=== PATIENT | female | born 2000 | race Caucasian/White ===

== ENCOUNTER 2021-01-07 00:24 | Emergency (ER) | payer BC ==
[2021-01-07] MEDS ORDERED: MORPHINE SULFATE 4 MG INJ IV ONE (00:27)
[2021-01-07] MEDS ORDERED: ZOFRAN ODT 4 MG PO ONE (00:27)
[2021-01-07] MEDS ORDERED: Sodium Chloride 0.9% 1000 ML 1,000 ML IV STA (00:27)
[2021-01-07] MEDS ORDERED: ROCEPHIN 1 Gm-D5w 50 ml Bag** 1 G/50 ML IVPB IV ONE (02:17)
--- NOTE | 2021-01-07 02:58 | ERPHSYRPT ---
- Review of Systems Constitutional: No Symptoms, No Fever, No Chills Eyes: No Symptoms Ears, Nose, & Throat: No Symptoms Respiratory: No Symptoms, No Cough, No Dyspnea Cardiac: No Symptoms, No Chest Pain, No Edema, No Syncope Abdominal/Gastrointestinal: No Symptoms, No Abdominal Pain, No Nausea, No Vomiting, No Diarrhea Genitourinary Symptoms: No Symptoms, No Dysuria Musculoskeletal: No Symptoms, No Back Pain, No Neck Pain Skin: No Symptoms, No Rash Neurological: No Symptoms, No Dizziness, No Focal Weakness, No Sensory Changes Psychological: No Symptoms Endocrine: No Symptoms Hematologic/Lymphatic: No Symptoms Immunological/Allergic: No Symptoms All Other Systems: Reviewed and Negative - Female History Hx Now: No - Physical Exam General Appearance: no apparent distress, alert Eye Exam: PERRL/EOMI, eyes nml inspection Ears, Nose, Throat Exam: normal ENT inspection, pharynx normal, moist mucous membranes Neck Exam: normal inspection, non-tender, supple, full range of motion Respiratory Exam: normal breath sounds, lungs clear, airway intact, No respiratory distress Cardiovascular Exam: regular rate/rhythm, normal heart sounds, normal peripheral pulses Gastrointestinal/Abdomen Exam: soft, other (Tenderness palpation epigastrium. Overlying soft tissue intact. No signs of trauma.), No tenderness, No distention, No mass Back Exam: normal inspection, normal range of motion, No CVA tenderness, No vertebral tenderness Extremity Exam: normal inspection, normal range of motion, pelvis stable Neurologic Exam: alert, oriented x 3, cooperative, normal mood/affect, nml cere bellar function, sensation nml, No motor deficits Skin Exam: normal color, warm, dry SpO2 Interpretation: normal O2 Delivery: Room Air Ordered Tests: Medication Summary Discontinued Medications Generic Name Dose Route Start Last Admin Trade Name Freq PRN Reason Stop Dose Admin Sodium Chloride 1,000 mls @ 999 mls/hr 01/07/21 00:27 Sodium Chloride 0.9% 1000 Ml IV 01/07/21 01:27 .Q1H1M STA Ceftriaxone Sodium/Dextrose Confirm 01/07/21 02:17 Rocephin 1 Gm-D5w 50 Ml Bag Administered 01/07/21 02:18 Dose 1 g in 50 mls @ ud IV .STK-MED ONE Morphine Sulfate 4 mg 01/07/21 00:27 Morphine Sulfate 4 Mg Inj IV 01/07/21 00:28 STAT ONE Ondansetron HCl 4 mg 01/07/21 00:27 Zofran Odt 4 Mg PO 01/07/21 00:28 STAT ONE Lab/Rad Data: Laboratory Result Diagrams 01/07/21 00:27 01/07/21 00:27 Laboratory Results 01/07/21 01/07/21 01/07/21 Range/Units 01:00 00:30 00:27 WBC (4.0-10.5) K/mm3 RBC (4.1-5.4) M/mm3 Hgb (12.0-16.0) gm/dl Hct (35-47) % MCV (78-100) fl MCH (26-32) pg MCHC (32-36) g/dl RDW (11.5-14.0) % Plt Count (150-450) K/mm3 MPV (7.5-11.0) fl Gran % (36.0-66.0) % Eos # (Auto) (0-0.5) Absolute Lymphs (auto) (1.0-4.6) Absolute Monos (auto) (0.0-1.3) Lymphocytes % (24.0-44.0) % Monocytes % (0.0-12.0) % Eosinophils % (0.00-5.0) % Basophils % (0.0-0.4) % Absolute Granulocytes (1.4-6.9) Basophils # (0-0.4) Sodium 142 (137-145) mmol/L Potassium 3.9 (3.5-5.1) mmol/L Chloride 106 (98-107) mmol/L Carbon Dioxide 27 (22-30) mmol/L Anion Gap 12.9 (5-15) MEQ/L BUN 17 (7-17) mg/dL Creatinine 0.98 (0.52-1.04) mg/dL Estimated GFR > 60.0 ML/MIN Glucose 94 (74-106) mg/dL Calcium 8.9 (8.4-10.2) mg/dL Total Bilirubin 0.40 (0.2-1.3) mg/dL AST 31 (14-36) U/L ALT 21 (0-35) U/L Alkaline Phosphatase 69 (38-126) U/L Troponin I < 0.012 (0.000-0.034) ng/mL Serum Total Protein 7.0 (6.3-8.2) g/dL Albumin 4.0 (3.5-5.0) g/dL Lipase 127 (23-300) U/L Urine Color (YELLOW) Urine Appearance (CLEAR) Urine pH (5-6) Ur Specific [place] (1.005-1.025) Urine Protein (Negative) Urine Ketones (NEGATIVE) Urine Blood (0-5) Shahzad/ul Urine Nitrite (NEGATIVE) Urine Bilirubin (NEGATIVE) Urine Urobilinogen (0-1) mg/dL Ur Leukocyte Esterase (NEGATIVE) Urine WBC (Auto) (0-5) /HPF Urine RBC (Auto) (0-2) /HPF U Epithel Cells (Auto) (FEW) /HPF Urine Bacteria (Auto) (NEGATIVE) /HPF Urine Mucus (Auto) (NEGATIVE) /HPF Urine Culture Reflexed (NO) Urine Glucose (NEGATIVE) mg/dL Urine HCG, Qual NEGATIVE (Negative) 01/07/21 01/07/21 Range/Units 00:27 00:27 WBC 15.3 H (4.0-10.5) K/mm3 RBC 4.65 (4.1-5.4) M/mm3 Hgb 13.3 (12.0-16.0) gm/dl Hct 40.9 (35-47) % MCV 88.0 (78-100) fl MCH 28.6 (26-32) pg MCHC 32.5 (32-36) g/dl RDW 12.6 (11.5-14.0) % Plt Count 277 (150-450) K/mm3 MPV 10.4 (7.5-11.0) fl Gran % 72.1 H (36.0-66.0) % Eos # (Auto) 0.18 (0-0.5) Absolute Lymphs (auto) 3.51 (1.0-4.6) Absolute Monos (auto) 0.55 (0.0-1.3) Lymphocytes % 23.0 L (24.0-44.0) % Monocytes % 3.6 (0.0-12.0) % Eosinophils % 1.2 (0.00-5.0) % Basophils % 0.1 (0.0-0.4) % Absolute Granulocytes 11.00 H (1.4-6.9) Basophils # 0.02 (0-0.4) Sodium (137-145) mmol/L Potassium (3.5-5.1) mmol/L Chloride (98-107) mmol/L Carbon Dioxide (22-30) mmol/L Anion Gap (5-15) MEQ/L BUN (7-17) mg/dL Creatinine (0.52-1.04) mg/dL Estimated GFR ML/MIN Glucose (74-106) mg/dL Calcium (8.4-10.2) mg/dL Total Bilirubin (0.2-1.3) mg/dL AST (14-36) U/L ALT (0-35) U/L Alkaline Phosphatase (38-126) U/L Troponin I (0.000-0.034) ng/mL Serum Total Protein (6.3-8.2) g/dL Albumin (3.5-5.0) g/dL Lipase (23-300) U/L Urine Color YELLOW (YELLOW) Urine Appearance SLIGHTLY CLOUDY (CLEAR) Urine pH 5.0 (5-6) Ur Specific [place] 1.024 (1.005-1.025) Urine Protein NEGATIVE (Negative) Urine Ketones NEGATIVE (NEGATIVE) Urine Blood NEGATIVE (0-5) Shahzad/ul Urine Nitrite POSITIVE (NEGATIVE) Urine Bilirubin NEGATIVE (NEGATIVE) Urine Urobilinogen NEGATIVE (0-1) mg/dL Ur Leukocyte Esterase LARGE (NEGATIVE) Urine WBC (Auto) 51-100 (0-5) /HPF Urine RBC (Auto) 3-5 (0-2) /HPF U Epithel Cells (Auto) RARE (FEW) /HPF Urine Bacteria (Auto) MANY (NEGATIVE) /HPF Urine Mucus (Auto) SLIGHT (NEGATIVE) /HPF Urine Culture Reflexed YES (NO) Urine Glucose NEGATIVE (NEGATIVE) mg/dL Urine HCG, Qual (Negative) - Departure Referrals: ENRIKE SALAS MD [Primary Care Provider] -
[2021-01-07 03:29] LABS: BASOPHIL % 0.1 % (0.0-0.4); Basophil (Absolute #) 0.02 (0-0.4); Eosinophil % 1.2 % (0.00-5.0); Eosinophil (Absolute #) 0.18 (0-0.5); Hematocrit 40.9 % (35-47); Hemoglobin 13.3 gm/dl (12.0-16.0); Lymphocyte (Absolute #) 3.51 (1.0-4.6); Mean Corpuscular Hemoglobin 28.6 pg (26-32); Mean Corpuscular Hgb Concent. 32.5 g/dl (32-36); Mean Platelet Volume 10.4 fl (7.5-11.0); Monocyte (Absolute #) 0.55 (0.0-1.3); Monocytes % 3.6 % (0.0-12.0); Neutrophil % 72.1 % (36.0-66.0); Platelet Count 277 K/mm3 (150-450); Red Blood Count 4.65 M/mm3 (4.1-5.4); Red Cell Distribution Width 12.6 % (11.5-14.0); White Blood Count 15.3 K/mm3 (4.0-10.5)
[2021-01-07 03:40] LABS: ALKALINE PHOSPHATASE 69 U/L (38-126); BLOOD UREA NITROGEN 17 mg/dL (7-17); CHLORIDE 106 mmol/L (98-107); Calcium 8.9 mg/dL (8.4-10.2); Carbon Dioxide 27 mmol/L (22-30); Creatinine 1 0.98 mg/dL (0.52-1.04); EST GLOMERULAR FILTRATION RATE > 60.0 ML/MIN; Glucose 94 mg/dL (74-106); LIPASE 127 U/L (23-300); Potassium 3.9 mmol/L (3.5-5.1); SGOT/AST 31 U/L (14-36); SGPT/ALT 21 U/L (0-35); SODIUM 142 mmol/L (137-145)
[2021-01-07 03:41] LABS: ANION GAP 12.9 MEQ/L (5-15)
[2021-01-07 03:44] LABS: Appearance SLIGHTLY CLOUDY (CLEAR); Bacteria MANY /HPF (NEGATIVE); Bilirubin NEGATIVE (NEGATIVE); Blood NEGATIVE Ery/ul (0-5); Epithelial Cells RARE /HPF (FEW); Glucose NEGATIVE (NEGATIVE); Ketones NEGATIVE (NEGATIVE); Leukocyte Esterase LARGE (NEGATIVE); Mucus SLIGHT /HPF (NEGATIVE); Nitrite POSITIVE (NEGATIVE); Protein,Urine Dip NEGATIVE (Negative); Specific Gravity 1.024 (1.005-1.025); Urobilinogen NEGATIVE mg/dL (0-1); WBC 51-100 /HPF (0-5)
--- NOTE | 2021-01-07 09:04 | XRAY ---
Indication: Epigastric/right upper quadrant pain. Multiple contiguous axial images obtained through the abdomen and pelvis using 80 cc Isovue 370 contrast. Comparison: None. Lung bases clear. Heart not enlarged. Noncontrasted stomach and bowel loops appear nonobstructed. Normal appendix. Neck of the gallbladder demonstrates punctate stone without CT features for acute cholecystitis or biliary distention. No free fluid/air. Remaining liver, gallbladder, pancreas, spleen, adrenal glands, kidneys, ureters, bladder, uterus, and aorta are unremarkable. No pathologic retroperitoneal lymphadenopathy. Osseous structures intact. Impression: 1. Tiny gallstone. 2. Remaining CT abdomen/pelvis with contrast exam is negative. Comment: Preliminary interpretation made by [facility] who does not report incidental punctate gallstone.
== END 2021-01-07 03:25 | disposition home or self-care (01) ==
LOC: ED 00:24
DX: N39.0 Urinary tract infection, site not specified (principal); D72.829 Elevated white blood cell count, unspecified; R10.13 Epigastric pain
CPT/HCPCS: 36415; 74177; 80053; 81001; 83690; 84484; 84703; 85025; 87077; 87086; 87186; 96374; 96375; 99283; J0696

== ENCOUNTER 2022-11-18 18:03 | Emergency (ER) | payer BC ==
[2022-11-18] MEDS ORDERED: Sodium Chloride 0.9% 1000 ML 1,000 ML IV STA (18:19)
[2022-11-18] MEDS ORDERED: Sodium Chloride 0.9% 1000 ML 1,000 ML ONE (18:21)
[2022-11-18 18:41] LABS: Absolute Neutrophil Ct (ANC) 12.32 x10^3/uL (1.4-6.9); BASOPHIL % 0.4 % (0.0-0.4); Basophil (Absolute #) 0.06 x10^3/uL (0-0.4); Eosinophil % 1.6 % (0.00-5.0); Eosinophil (Absolute #) 0.25 x10^3/uL (0-0.5); Hematocrit 42.7 % (35-47); Hemoglobin 14.1 g/dL (12.0-16.0); IMMATURE GRAN # 0.07 x10^3u/L (0.00-0.03); IMMATURE GRAN % 0.4 % (0.00-0.4); Lymphocyte (Absolute #) 2.47 x10^3/uL (1.0-4.6); Lymphocytes % 15.8 % (24.0-44.0); Mean Cell Volume 86.4 fL (78-100); Mean Corpuscular Hemoglobin 28.5 pg (26-32); Mean Platelet Volume 11.2 fL (7.5-11.0); Monocyte (Absolute #) 0.49 x10^3/uL (0.0-1.3); Monocytes % 3.1 % (0.0-12.0); Neutrophil % 78.7 % (36.0-66.0); Platelet Count 308 x10^3/uL (150-450); Red Blood Count 4.94 x10^6/uL (4.1-5.4); Red Cell Distribution Width 12.2 % (11.5-14.0); White Blood Count 15.7 x10^3/uL (4.0-10.5)
[2022-11-18 18:57] LABS: ALBUMIN 4.3 g/dL (3.5-5.0); ALKALINE PHOSPHATASE 65 U/L (38-126); AMYLASE 64 U/L (30-110); ANION GAP 14.9 MEQ/L (5-15); BLOOD UREA NITROGEN 17 mg/dL (7-17); CHLORIDE 108 mmol/L (98-107); Calcium 9.1 mg/dL (8.4-10.2); Carbon Dioxide 21 mmol/L (22-30); EST GLOMERULAR FILTRATION RATE > 60.0 ML/MIN; Glucose 100 mg/dL (74-106); HCG SERUM TEST NEGATIVE (NEGATIVE); LIPASE 58 U/L (23-300); Potassium 3.5 mmol/L (3.5-5.1); SGOT/AST 23 U/L (14-36); SGPT/ALT 17 U/L (0-35); SODIUM 140 mmol/L (137-145); Total Protein 7.3 g/dL (6.3-8.2)
[2022-11-18 19:11] VITALS: O2SAT 99
--- NOTE | 2022-11-18 19:13 | ERPHSYRPT ---
- History of Present Illness Time Seen by Provider: 11/18/22 18:35 Historian: patient, other (friend) Exam Limitations: no limitations Patient Subjective Stated Complaint: to er c/o vomiting abd pain. 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 Upon arrival pt had approx 300 cc of bright yellow bile emisi noted. PT reports she smokes marajuina daily though has not today Triage Nursing Assessment: PT arrives pale, diaphoretic, cold chills noted and actively vomiting. pt guarding abd. PT a@[id number] 3 Physician History: Reportedly about 90 minutes ago pt ate at a [place] restaurant and after started vomiting x7 and had a normal BM. Pt also had 5 syncopal episodes lasting about 2 seconds each. Pt also c/o diaphoresis & chills. Pt c/o 7/10 generalized dull abdominal pain since Sx started. Allergies/Adverse Reactions: Sulfa (Sulfonamide Antibiotics) Allergy (Severe, Verified 07/07/21 04:39) Anaphylactic Reaction Home Medications: Etonogestrel [Nexplanon] 68 mg SQ UD 11/18/22 [History] Hx Tetanus, Diphtheria Vaccination/Date Given: No Hx Influenza Vaccination/Date Given: No Hx Pneumococcal Vaccination/Date Given: No Immunizations Up to Date: No Travel Risk - International Travel Have you traveled outside of the country in past 3 weeks: No - Coronavirus Screening Are you exhibiting any of the following symptoms?: No Close contact with a COVID-19 positive Pt in past 14-21 Days: No - Vaccine Status Have you recieved a Covid-19 vaccination: No - Review of Systems Constitutional: Chills Ears, Nose, & Throat: No Ear Pain, No Mouth Pain Respiratory: No Cough, No Dyspnea Cardiac: No Chest Pain Abdominal/Gastrointestinal: Abdominal Pain, Vomiting, No Diarrhea Neurological: Other (syncope) - Past Medical History Pertinent Past Medical History: No Neurological History: No Pertinent History ENT History: No Pertinent History Cardiac History: No Pertinent History Respiratory History: No Pertinent History Endocrine Medical History: No Pertinent History Musculoskeletal History: No Pertinent History GI Medical History: Gallbladder Disease History: No Pertinent History Psycho-Social History: No Pertinent History Female Reproductive Disorders: No Pertinent History - Past Surgical History Past Surgical History: Yes Neuro Surgical History: No Pertinent History Cardiac: No Pertinent History Respiratory: No Pertinent History Gastrointestinal: Cholecystectomy Genitourinary: No Pertinent History Musculoskeletal: No Pertinent History Female Surgical History: No Pertinent History - Social History Smoking Status: Light tobacco smoker How long have you smoked: 1 year Exposure to second hand smoke: No Drug Use: marijuana Patient Lives Alone: No - Female History Hx Now: (hcg pending) - Nursing Vital Signs Nursing Vital Signs: Initial Vital Signs Pulse Rate 52 L 11/18/22 19:00 Respiratory Rate 20 11/18/22 19:00 Blood Pressure 116/66 11/18/22 19:00 O2 Sat by Pulse Oximetry 99 11/18/22 19:00 Pain Scale Pain Intensity 8 - Physical Exam General Appearance: alert Eye Exam: PERRL/EOMI Ears, Nose, Throat Exam: TMs normal, pharynx normal, moist mucous membranes Neck Exam: normal inspection Respiratory Exam: normal breath sounds Cardiovascular Exam: normal heart sounds Gastrointestinal/Abdomen Exam: soft, normal bowel sounds Extremity Exam: No pedal edema Neurologic Exam: alert, cooperative, sensation nml, No motor deficits, No slurred speech Skin Exam: warm, dry SpO2 Interpretation: normal SpO2: 99 O2 Delivery: Room Air - Course Nursing assessment & vital signs reviewed: Yes EKG Interpreted by Me: RATE (49), Sinus Deep, Left [place] Deviation - Radiology Exams Chest X-ray Interpretation: Discussed w/ radiologist, No Pneumonia - CT Exams Head CT Interpretation: Tele-radiologist Report, Other (unremarkable) Abdomen/Pelvis CT Interpretation: Tele-radiologist Report (no significant acute abnormality was detected in abdomen and pelvis) Ordered Tests: Active Orders 24 hr Category Date Time Status EKG-ER Only STAT Care 11/18/22 19:00 Active IV Insertion STAT Care 11/18/22 18:22 Active ABDOMEN AND PELVIS W/0 CONTRAS [CT] Stat Exams 11/18/22 18:58 Completed CHEST 1 VIEW (PORTABLE) Stat Exams 11/18/22 19:00 Completed HEAD WITHOUT CONTRAST [CT] Stat Exams 11/18/22 18:59 Completed AMYLASE Stat Lab 11/18/22 18:39 Completed CBC W DIFF Stat Lab 11/18/22 18:39 Completed CMP Stat Lab 11/18/22 18:39 Completed CULTURE,URINE Stat Lab 11/18/22 18:30 Received HCG QUALITATIVE, SERUM Stat Lab 11/18/22 18:39 Completed LIPASE Stat Lab 11/18/22 18:39 Completed TROPONIN Q4H Lab 11/18/22 Completed TROPONIN Q4H Lab 11/18/22 23:15 Ordered TROPONIN Q4H Lab 11/19/22 03:15 Ordered UA W/RFX UR CULTURE Stat Lab 11/18/22 18:30 Completed Medication Summary Discontinued Medications Generic Name Dose Route Start Last Admin Trade Name Isabell PRN Reason Stop Dose Admin Droperidol 0.625 mg 11/18/22 18:19 11/18/22 18:25 Droperidol 5 Mg/2 Ml Vial IV 11/18/22 18:20 0.625 mg STAT ONE Administration Droperidol Confirm 11/18/22 18:21 Droperidol 5 Mg/2 Ml Vial Administered 11/18/22 18:22 Dose 5 mg .ROUTE .STK-MED ONE Sodium Chloride 1,000 mls @ 999 mls/hr 11/18/22 18:19 11/18/22 19:27 Sodium Chloride 0.9% 1000 Ml IV 11/18/22 19:19 Infused .Q1H1M STA Infusion Sodium Chloride Confirm 11/18/22 18:21 Sodium Chloride 0.9% 1000 Ml Administered 11/18/22 18:22 Dose 1,000 mls @ ud .ROUTE .STK-MED ONE Ceftriaxone Sodium/Dextrose 1 g in 50 mls @ 100 mls/hr 11/18/22 20:44 11/18/22 21:34 Rocephin 1 Gm-D5w 50 Ml Bag IV 11/18/22 21:13 Infused STAT STA Infusion Ceftriaxone Sodium/Dextrose Confirm 11/18/22 21:02 Rocephin 1 Gm-D5w 50 Ml Bag Administered 11/18/22 21:03 Dose 1 g in 50 mls @ ud IV .STK-MED ONE Ketorolac Tromethamine 30 mg 11/18/22 19:14 11/18/22 19:19 Ketorolac Tromethamine 30 Mg/Ml Inj IV 11/18/22 19:15 30 mg STAT ONE Administration Ketorolac Tromethamine Confirm 11/18/22 19:17 Ketorolac Tromethamine 30 Mg/Ml Inj Administered 11/18/22 19:18 Dose 30 mg .ROUTE .STK-MED ONE Prochlorperazine Edisylate 5 mg 11/18/22 19:14 11/18/22 19:19 Prochlorperazine Edisylate 10 Mg/2 Ml Vial IV 11/18/22 19:15 5 mg STAT ONE Administration Prochlorperazine Edisylate Confirm 11/18/22 19:17 Prochlorperazine Edisylate 10 Mg/2 Ml Vial Administered 11/18/22 19:18 Dose 10 mg .ROUTE .[facility] ONE Lab/Rad Data: Laboratory Result Diagrams 11/18/22 18:39 11/18/22 18:39 Laboratory Results 11/18/22 11/18/22 11/18/22 Range/Units Unknown 18:39 18:39 WBC (4.0-10.5) x10^3/uL RBC (4.1-5.4) x10^6/uL Hgb (12.0-16.0) g/dL Hct (35-47) % MCV (78-100) fL MCH (26-32) pg MCHC (32-36) g/dL RDW (11.5-14.0) % Plt Count (150-450) x10^3/uL MPV (7.5-11.0) fL Gran % (36.0-66.0) % Immature Gran % (Auto) (0.00-0.4) % Nucleat RBC Rel Count (0.00-0.1) % Eos # (Auto) (0-0.5) x10^3/uL Immature Gran # (Auto) (0.00-0.03) x10^3u/L Absolute Lymphs (auto) (1.0-4.6) x10^3/uL Absolute Monos (auto) (0.0-1.3) x10^3/uL Absolute Nucleated RBC (0.00-0.01) x10^3u/L Lymphocytes % (24.0-44.0) % Monocytes % (0.0-12.0) % Eosinophils % (0.00-5.0) % Basophils % (0.0-0.4) % Absolute Granulocytes (1.4-6.9) x10^3/uL Basophils # (0-0.4) x10^3/uL Sodium 140 (137-145) mmol/L Potassium 3.5 (3.5-5.1) mmol/L Chloride 108 H (98-107) mmol/L Carbon Dioxide 21 L (22-30) mmol/L Anion Gap 14.9 (5-15) MEQ/L BUN 17 (7-17) mg/dL Creatinine 0.80 (0.52-1.04) mg/dL Estimated GFR > 60.0 ML/MIN Glucose 100 (74-106) mg/dL Calcium 9.1 (8.4-10.2) mg/dL Total Bilirubin 0.90 (0.2-1.3) mg/dL AST 23 (14-36) U/L ALT 17 (0-35) U/L Alkaline Phosphatase 65 (38-126) U/L Troponin I < 0.012 (0.000-0.034) ng/mL Serum Total Protein 7.3 (6.3-8.2) g/dL Albumin 4.3 (3.5-5.0) g/dL Amylase 64 (30-110) U/L Lipase 58 (23-300) U/L Serum HCG, Qual NEGATIVE (NEGATIVE) Urine Color (Yellow) Urine Appearance (Clear) Urine pH (4.6-8.0) Ur Specific [place] (1.005-1.030) Urine Protein (Negative) Urine Glucose (UA) (Negative) mg/dL Urine Ketones (Negative) Urine Blood (Negative) Urine Nitrite (Negative) Urine Bilirubin (Negative) Urine Urobilinogen (0.2) mg/dL Ur Leukocyte Esterase (Negative) U Hyaline Cast (Auto) (0-2) /LPF Urine Microscopic RBC (0-5) /HPF Urine Microscopic WBC (0-5) /HPF Ur Epithelial Cells (None Seen) /HPF Amorphous Crystals (None Seen) /HPF Urine Bacteria (None Seen) /HPF Urine Culture Reflexed (NO) 11/18/22 11/18/22 Range/Units 18:39 18:30 WBC 15.7 H (4.0-10.5) x10^3/uL RBC 4.94 (4.1-5.4) x10^6/uL Hgb 14.1 (12.0-16.0) g/dL Hct 42.7 (35-47) % MCV 86.4 (78-100) fL MCH 28.5 (26-32) pg MCHC 33.0 (32-36) g/dL RDW 12.2 (11.5-14.0) % Plt Count 308 (150-450) x10^3/uL MPV 11.2 H (7.5-11.0) fL Gran % 78.7 H (36.0-66.0) % Immature Gran % (Auto) 0.4 (0.00-0.4) % Nucleat RBC Rel Count 0.0 (0.00-0.1) % Eos # (Auto) 0.25 (0-0.5) x10^3/uL Immature Gran # (Auto) 0.07 H (0.00-0.03) x10^3u/L Absolute Lymphs (auto) 2.47 (1.0-4.6) x10^3/uL Absolute Monos (auto) 0.49 (0.0-1.3) x10^3/uL Absolute Nucleated RBC 0.00 (0.00-0.01) x10^3u/L Lymphocytes % 15.8 L (24.0-44.0) % Monocytes % 3.1 (0.0-12.0) % Eosinophils % 1.6 (0.00-5.0) % Basophils % 0.4 (0.0-0.4) % Absolute Granulocytes 12.32 H (1.4-6.9) x10^3/uL Basophils # 0.06 (0-0.4) x10^3/uL Sodium (137-145) mmol/L Potassium (3.5-5.1) mmol/L Chloride (98-107) mmol/L Carbon Dioxide (22-30) mmol/L Anion Gap (5-15) MEQ/L BUN (7-17) mg/dL Creatinine (0.52-1.04) mg/dL Estimated GFR ML/MIN Glucose (74-106) mg/dL Calcium (8.4-10.2) mg/dL Total Bilirubin (0.2-1.3) mg/dL AST (14-36) U/L ALT (0-35) U/L Alkaline Phosphatase (38-126) U/L Troponin I (0.000-0.034) ng/mL Serum Total Protein (6.3-8.2) g/dL Albumin (3.5-5.0) g/dL Amylase (30-110) U/L Lipase (23-300) U/L Serum HCG, Qual (NEGATIVE) Urine Color Dark Yellow A (Yellow) Urine Appearance Turbid A (Clear) Urine pH 5.5 (4.6-8.0) Ur Specific [place] >=1.030 A (1.005-1.030) Urine Protein Trace A (Negative) Urine Glucose (UA) Negative (Negative) mg/dL Urine Ketones 80 A (Negative) Urine Blood Negative (Negative) Urine Nitrite Negative (Negative) Urine Bilirubin Negative (Negative) Urine Urobilinogen 1.0 A (0.2) mg/dL Ur Leukocyte Esterase Trace A (Negative) U Hyaline Cast (Auto) 6-10 A (0-2) /LPF Urine Microscopic RBC 3-5 (0-5) /HPF Urine Microscopic WBC 21-50 A (0-5) /HPF Ur Epithelial Cells Moderate A (None Seen) /HPF Amorphous Crystals Many A (None Seen) /HPF Urine Bacteria Moderate A (None Seen) /HPF Urine Culture Reflexed YES (NO) - Progress Progress Note: 11/18/22 22:17 Pt wants to go home; states she had her heart checked out with a monitor and it was OK. Counseled pt/family regarding: lab results, diagnosis, need for follow-up, rad results Medical Desision Making - Diagnostic Testing Diagnostic test were ordered, analyzed, and reviewed by me: Yes Radiological Interpretation: Teleradiologist Report - Departure Departure Disposition: Home Clinical Impression: Vomiting, Bradycardia, Syncope, Abdominal pain Condition: Stable Critical Care Time: No Referrals: ENRIKE SALAS MD [Primary Care Provider] - Follow up/PCP as directed Instructions: Abdominal pain Additional Instructions: Follow up with private doctor tomorrow. Clear liquids for 12 hours. Prescriptions: Promethazine HCl 25 mg [Phenergan 25 mg] 25 mg PO Q6HPRN PRN #10 tablet PRN Reason: Vomiting
[2022-11-18] MEDS ORDERED: Compazine 10 MG/2 ML IV ONE (19:14)
[2022-11-18] MEDS ORDERED: TORAdol 30 mg Injection IV ONE (19:14)
[2022-11-18 19:17] LABS: Appearance Turbid (Clear); Bacteria Moderate /HPF (None Seen); Bilirubin Negative (Negative); Blood Negative (Negative); Epithelial Cells Moderate /HPF (None Seen); Glucose, Urine Negative (Negative); Ketones 80 (Negative); Leukocyte Esterase Trace (Negative); Nitrite Negative (Negative); Ph 5.5 (4.6-8.0); Protein,Urine Dip Trace (Negative); Specific Gravity >=1.030 (1.005-1.030); WBC 21-50 /HPF (0-5)
[2022-11-18] MEDS ORDERED: Compazine 10 MG/2 ML ONE (19:17)
[2022-11-18] MEDS ORDERED: TORAdol 30 mg Injection ONE (19:17)
[2022-11-18 19:22] LABS: ADD URINE CULTURE? YES (NO); Amourphous Crystal Many /HPF (None Seen)
[2022-11-18 20:22] VITALS: RESP 16
[2022-11-18] MEDS ORDERED: ROCEPHIN 1 Gm-D5w 50 ml Bag** 1 G/50 ML IVPB IV STA (20:44)
[2022-11-18] MEDS ORDERED: ROCEPHIN 1 Gm-D5w 50 ml Bag** 1 G/50 ML IVPB IV ONE (21:02)
--- NOTE | 2022-11-18 21:02 | XRAY ---
Indication: Syncope. Comparison: None Portable chest demonstrates normal heart, lungs, and bony thorax.
--- NOTE | 2022-11-18 21:28 | XRAY ---
CLINICAL HISTORY:abdominal pain COMPARISON:07/07/2021. TECHNIQUE:CT scan of the abdomen and pelvis was performed without IV contrast. Coronal and sagittal reconstructive images were also obtained. FINDINGS: Abdomen: The liver is of average size. No focal or diffuse parenchymal abnormality. The portal vein, intrahepatic biliary radicals, and bile ducts are normal. The spleen, pancreas, and adrenal glands are unremarkable. The kidneys are unremarkable. They are normal in size and shape. No calculi or hydronephrosis. The gallbladder is surgically removed. The ascending colon, the transverse colon, and the descending colon visualized small bowel loops are unremarkable. There are few sub-centimetric mesenteric lymph nodes. Pelvis: Minimal free fluid is seen in the pouch of Arturo. The urinary bladder is unremarkable. The wall thickening could not be commented upon within the limitations of the plain study. The rectosigmoid colon is distended with fecal matter. The uterus and adnexa appear unremarkable. No evidence of pelvic lymphadenopathy. No definite bony abnormalities could be depicted. IMPRESSION: 1. No significant acute abnormality was detected in abdomen and pelvis. 2. Minimal free fluid in Pouch of Arturo. 3. In comparison to the previous study dated 07/07/2021, minimal free fluid is seen in a pouch of Arturo in the present study. The gallbladder was present in a previous study with a small calculus in its lumen. Electronically Signed by: Mike Drake MD. (11/18/2022 20:27:27 YEAST FERMENTATION ATTENDANT)
--- NOTE | 2022-11-18 21:34 | XRAY ---
CLINICAL HISTORY:syncope COMPARISON:None. TECHNIQUE:Axial non-contrast CT scan of the brain was performed from the skull base to the high parietal region. FINDINGS: The visualized brain parenchyma shows a normal appearance. Garcia-white matter differentiation is maintained. No midline shifts or deformity. No intracerebral or extra axial hematoma. Normal size and configuration of the cerebral ventricles. Normal CT appearance of the posterior fossa structures namely the cerebellar hemispheres, brainstem and cerebellar peduncles. The IACs are unremarkable. The cerebello-pontine angles are clear. The osseous structures in the skull base are unremarkable. No definite calvarium fractures. The scanned paranasal sinuses are clear. IMPRESSION: The non-enhanced CT study for the brain is unremarkable. Electronically Signed by: Mike Drake MD. (11/18/2022 20:33:25 DIRECTOR HR COMMUNICATIONS)
[2022-11-18 22:24] VITALS: BP 108/45; PULSE 56
== END 2022-11-18 22:31 | disposition home or self-care (01) ==
LOC: ED 18:03
DX: R11.2 Nausea with vomiting, unspecified (principal); R00.1 Bradycardia, unspecified; R55 Syncope and collapse; R10.84 Generalized abdominal pain; Z28.310 Unvaccinated for COVID-19; Z72.0 Tobacco use
CPT/HCPCS: 36000; 36415; 70450; 71045; 74176; 80053; 81001; 82150; 83690; 84484; 84703; 85025; 87077; 87086; 87186; 93005; 96360; 96365; 96374; 96375; 99284; J0696; J1885

== ENCOUNTER 2022-12-22 01:19 | Emergency (ER) | payer SELFPAY ==
[2022-12-22 03:09] LABS: BASOPHIL % 0.2 % (0.0-0.4); Basophil (Absolute #) 0.03 x10^3/uL (0-0.4); Eosinophil % 0.1 % (0.00-5.0); Eosinophil (Absolute #) 0.01 x10^3/uL (0-0.5); Hematocrit 42.9 % (35-47); Hemoglobin 14.2 g/dL (12.0-16.0); IMMATURE GRAN # 0.04 x10^3u/L (0.00-0.03); IMMATURE GRAN % 0.3 % (0.00-0.4); Lymphocyte (Absolute #) 2.16 x10^3/uL (1.0-4.6); Lymphocytes % 17.2 % (24.0-44.0); Mean Cell Volume 86.7 fL (78-100); Mean Corpuscular Hemoglobin 28.7 pg (26-32); Mean Corpuscular Hgb Concent. 33.1 g/dL (32-36); Mean Platelet Volume 10.9 fL (7.5-11.0); Monocyte (Absolute #) 0.63 x10^3/uL (0.0-1.3); Neutrophil % 77.2 % (36.0-66.0); Platelet Count 323 x10^3/uL (150-450); Red Blood Count 4.95 x10^6/uL (4.1-5.4); Red Cell Distribution Width 12.1 % (11.5-14.0); White Blood Count 12.6 x10^3/uL (4.0-10.5)
[2022-12-22 03:23] LABS: ALBUMIN 4.5 g/dL (3.5-5.0); ALKALINE PHOSPHATASE 63 U/L (38-126); AMYLASE 66 U/L (30-110); BLOOD UREA NITROGEN 16 mg/dL (7-17); CHLORIDE 102 mmol/L (98-107); Calcium 9.3 mg/dL (8.4-10.2); Carbon Dioxide 29 mmol/L (22-30); Creatinine 1 0.81 mg/dL (0.52-1.04); EST GLOMERULAR FILTRATION RATE > 60.0 ML/MIN; Glucose 101 mg/dL (74-106); LIPASE 42 U/L (23-300); Potassium 3.2 mmol/L (3.5-5.1); SGOT/AST 29 U/L (14-36); SGPT/ALT 26 U/L (0-35); SODIUM 139 mmol/L (137-145); Total Protein 7.7 g/dL (6.3-8.2)
[2022-12-22] MEDS ORDERED: Zofran 4 MG/2 ML VIAL IV ONE (03:29)
[2022-12-22] MEDS ORDERED: TORAdol 30 mg Injection ONE (03:30)
[2022-12-22] MEDS ORDERED: TORAdol 30 mg Injection IV ONE (03:30)
[2022-12-22] MEDS ORDERED: Zofran 4 MG/2 ML VIAL ONE (03:30)
[2022-12-22 03:36] LABS: HCG SERUM TEST NEGATIVE (NEGATIVE)
--- NOTE | 2022-12-22 03:36 | ERPHSYRPT ---
- History of Present Illness Historian: patient Exam Limitations: no limitations Physician History: 22 yp Wf w epigastric pain x 2 days. Pain is dull/throbbing, 10 on scale, and nothing makes it better or worse. She has had nausea/vomiting and possibly mild hematemesis. Pt denies diarrhea and states that she has not had a BM in several days. Dysuria/hematuria/fever/melena/hematochezia/cough/coryza are all denied. Pt has had a cholecystectomy and smokes marijuana regularly. Timing/Duration: day(s) (2 days) Activities at Onset: rest Quality: aching, throbbing Abdominal Pain Onset Location: epigastric Pain Radiation: no radiation Severity of Pain-Max: severe Severity of Pain-Current: severe Modifying Factors: Improves With: nothing Associated Symptoms: denies symptoms, nausea, vomiting Allergies/Adverse Reactions: Sulfa (Sulfonamide Antibiotics) Allergy (Severe, Verified 12/22/22 03:26) Anaphylactic Reaction Home Medications: Etonogestrel [Nexplanon] 68 mg SQ UD 11/18/22 [History] Hx Tetanus, Diphtheria Vaccination/Date Given: No Hx Influenza Vaccination/Date Given: No Hx Pneumococcal Vaccination/Date Given: No Travel Risk - Vaccine Status Have you recieved a Covid-19 vaccination: No - Review of Systems Constitutional: No Symptoms Eyes: No Symptoms Ears, Nose, & Throat: No Symptoms Respiratory: No Symptoms Cardiac: No Symptoms Abdominal/Gastrointestinal: No Symptoms, Abdominal Pain, Nausea, Vomiting Genitourinary Symptoms: No Symptoms Musculoskeletal: No Symptoms Skin: No Symptoms Neurological: No Symptoms Psychological: No Symptoms Endocrine: No Symptoms Hematologic/Lymphatic: No Symptoms Immunological/Allergic: No Symptoms - Past Medical History Pertinent Past Medical History: No Neurological History: No Pertinent History ENT History: No Pertinent History Cardiac History: No Pertinent History Respiratory History: No Pertinent History Endocrine Medical History: No Pertinent History Musculoskeletal History: No Pertinent History GI Medical History: Gallbladder Disease History: No Pertinent History Psycho-Social History: No Pertinent History Female Reproductive Disorders: No Pertinent History - Past Surgical History Past Surgical History: Yes Neuro Surgical History: No Pertinent History Cardiac: No Pertinent History Respiratory: No Pertinent History Gastrointestinal: Cholecystectomy Genitourinary: No Pertinent History Musculoskeletal: No Pertinent History Female Surgical History: No Pertinent History - Social History Smoking Status: Light tobacco smoker How long have you smoked: 1 year Exposure to second hand smoke: No Drug Use: marijuana Patient Lives Alone: No - Nursing Vital Signs Nursing Vital Signs: Initial Vital Signs Pulse Rate 79 12/22/22 03:00 Respiratory Rate 16 12/22/22 03:00 Blood Pressure 116/67 12/22/22 03:00 O2 Sat by Pulse Oximetry 96 12/22/22 03:00 Pain Scale Pain Intensity 5 - Physical Exam General Appearance: no apparent distress Eye Exam: PERRL/EOMI, eyes nml inspection Ears, Nose, Throat Exam: normal ENT inspection, TMs normal, pharynx normal, moist mucous membranes Neck Exam: normal inspection, non-tender, supple, full range of motion, No men ingismus, No mass, No Brudzinski, No Kernig's Respiratory Exam: normal breath sounds, lungs clear, airway intact Cardiovascular Exam: regular rate/rhythm, normal heart sounds, capillary refill <2 sec, No murmur Gastrointestinal/Abdomen Exam: soft, normal bowel sounds, tenderness (Moderate epigastric TTP wo guarding or rebound) Back Exam: normal inspection, normal range of motion Extremity Exam: normal inspection, normal range of motion Neurologic Exam: alert, oriented x 3, cooperative, director of hemophilia II-XII nml as tested, normal mood/affect, nml cerebellar function, nml station & gait, sensation nml Skin Exam: normal color, warm, dry Lymphatic Exam: No adenopathy SpO2 Interpretation: normal SpO2: 98 O2 Delivery: Room Air - Course Nursing assessment & vital signs reviewed: Yes - CT Exams Abdomen/Pelvis CT Interpretation: Tele-radiologist Report (NAD) Ordered Tests: Active Orders 24 hr Category Date Time Status ABDOMEN AND PELVIS W/0 CONTRAS [CT] Stat Exams 12/22/22 04:44 Completed AMYLASE Stat Lab 12/22/22 03:05 Completed CBC W DIFF Stat Lab 12/22/22 03:05 Completed CMP Stat Lab 12/22/22 03:05 Completed CULTURE,URINE Stat Lab 12/22/22 03:05 Received HCG QUALITATIVE, SERUM Stat Lab 12/22/22 03:05 Completed LIPASE Stat Lab 12/22/22 03:05 Completed UA W/RFX UR CULTURE Stat Lab 12/22/22 03:05 Completed Medication Summary Discontinued Medications Generic Name Dose Route Start Last Admin Trade Name Freq PRN Reason Stop Dose Admin Fentanyl Citrate 50 mcg 12/22/22 05:51 12/22/22 06:07 Fentanyl Citrate 100 Mcg/2 Ml* Vial IV 12/22/22 05:52 50 mcg STAT ONE Administration Fentanyl Citrate Confirm 12/22/22 06:06 Fentanyl Citrate 100 Mcg/2 Ml* Vial Administered 12/22/22 06:07 Dose 100 mcg .ROUTE .STK-MED ONE Sodium Chloride 1,000 mls @ 999 mls/hr 12/22/22 03:51 12/22/22 05:56 Sodium Chloride 0.9% 1000 Ml IV 12/22/22 04:51 Infused .Q1H1M STA Infusion Sodium Chloride Confirm 12/22/22 04:14 Sodium Chloride 0.9% 1000 Ml Administered 12/22/22 04:15 Dose 1,000 mls @ ud .ROUTE .STK-MED ONE Ketorolac Tromethamine 30 mg 12/22/22 03:30 12/22/22 03:31 Ketorolac Tromethamine 30 Mg/Ml Inj IV 12/22/22 03:31 30 mg STAT ONE Administration Ketorolac Tromethamine Confirm 12/22/22 03:30 Ketorolac Tromethamine 30 Mg/Ml Inj Administered 12/22/22 03:31 Dose 30 mg .ROUTE .STK-MED ONE Ondansetron HCl 4 mg 12/22/22 03:29 12/22/22 03:31 Ondansetron Hcl 4 Mg/2 Ml Vial IV 12/22/22 03:30 4 mg STAT ONE Administration Ondansetron HCl Confirm 12/22/22 03:30 Ondansetron Hcl 4 Mg/2 Ml Vial Administered 12/22/22 03:31 Dose 4 mg .ROUTE .STK-MED ONE Pantoprazole Sodium 40 mg 12/22/22 05:23 12/22/22 05:32 Pantoprazole 40 Mg Vial IV 12/22/22 05:24 40 mg STAT ONE Administration Pantoprazole Sodium Confirm 12/22/22 05:30 Pantoprazole 40 Mg Vial Administered 12/22/22 05:31 Dose 40 mg IV .STK-MED ONE Lab/Rad Data: Laboratory Result Diagrams 12/22/22 03:05 12/22/22 03:05 Laboratory Results 12/22/22 12/22/22 12/22/22 Range/Units 03:05 03:05 03:05 WBC (4.0-10.5) x10^3/uL RBC (4.1-5.4) x10^6/uL Hgb (12.0-16.0) g/dL Hct (35-47) % MCV (78-100) fL MCH (26-32) pg MCHC (32-36) g/dL RDW (11.5-14.0) % Plt Count (150-450) x10^3/uL MPV (7.5-11.0) fL Gran % (36.0-66.0) % Immature Gran % (Auto) (0.00-0.4) % Nucleat RBC Rel Count (0.00-0.1) % Eos # (Auto) (0-0.5) x10^3/uL Immature Gran # (Auto) (0.00-0.03) x10^3u/L Absolute Lymphs (auto) (1.0-4.6) x10^3/uL Absolute Monos (auto) (0.0-1.3) x10^3/uL Absolute Nucleated RBC (0.00-0.01) x10^3u/L Lymphocytes % (24.0-44.0) % Monocytes % (0.0-12.0) % Eosinophils % (0.00-5.0) % Basophils % (0.0-0.4) % Absolute Granulocytes (1.4-6.9) x10^3/uL Basophils # (0-0.4) x10^3/uL Sodium 139 (137-145) mmol/L Potassium 3.2 L (3.5-5.1) mmol/L Chloride 102 (98-107) mmol/L Carbon Dioxide 29 (22-30) mmol/L Anion Gap 11.0 (5-15) MEQ/L BUN 16 (7-17) mg/dL Creatinine 0.81 (0.52-1.04) mg/dL Estimated GFR > 60.0 ML/MIN Glucose 101 (74-106) mg/dL Calcium 9.3 (8.4-10.2) mg/dL Total Bilirubin 1.20 (0.2-1.3) mg/dL AST 29 (14-36) U/L ALT 26 (0-35) U/L Alkaline Phosphatase 63 (38-126) U/L Serum Total Protein 7.7 (6.3-8.2) g/dL Albumin 4.5 (3.5-5.0) g/dL Amylase 66 (30-110) U/L Lipase 42 (23-300) U/L Serum HCG, Qual NEGATIVE (NEGATIVE) Urine Color Dark Yellow A (Yellow) Urine Appearance Turbid A (Clear) Urine pH 5.5 (4.6-8.0) Ur Specific [place] >=1.030 A (1.005-1.030) Urine Protein 30 (Negative) Urine Glucose (UA) Negative (Negative) mg/dL Urine Ketones 80 A (Negative) Urine Blood Trace (Negative) Urine Nitrite Negative (Negative) Urine Bilirubin Negative (Negative) Urine Urobilinogen 1.0 A (0.2) mg/dL Ur Leukocyte Esterase Moderate A (Negative) U Hyaline Cast (Auto) NONE SEEN (0-2) /LPF Urine Microscopic RBC 3-5 (0-5) /HPF Urine Microscopic WBC 11-20 A (0-5) /HPF Ur Epithelial Cells Many A (None Seen) /HPF Urine Bacteria Many A (None Seen) /HPF Urine Culture Reflexed YES (NO) 12/22/22 Range/Units 03:05 WBC 12.6 H (4.0-10.5) x10^3/uL RBC 4.95 (4.1-5.4) x10^6/uL Hgb 14.2 (12.0-16.0) g/dL Hct 42.9 (35-47) % MCV 86.7 (78-100) fL MCH 28.7 (26-32) pg MCHC 33.1 (32-36) g/dL RDW 12.1 (11.5-14.0) % Plt Count 323 (150-450) x10^3/uL MPV 10.9 (7.5-11.0) fL Gran % 77.2 H (36.0-66.0) % Immature Gran % (Auto) 0.3 (0.00-0.4) % Nucleat RBC Rel Count 0.0 (0.00-0.1) % Eos # (Auto) 0.01 (0-0.5) x10^3/uL Immature Gran # (Auto) 0.04 H (0.00-0.03) x10^3u/L Absolute Lymphs (auto) 2.16 (1.0-4.6) x10^3/uL Absolute Monos (auto) 0.63 (0.0-1.3) x10^3/uL Absolute Nucleated RBC 0.00 (0.00-0.01) x10^3u/L Lymphocytes % 17.2 L (24.0-44.0) % Monocytes % 5.0 (0.0-12.0) % Eosinophils % 0.1 (0.00-5.0) % Basophils % 0.2 (0.0-0.4) % Absolute Granulocytes 9.70 H (1.4-6.9) x10^3/uL Basophils # 0.03 (0-0.4) x10^3/uL Sodium (137-145) mmol/L Potassium (3.5-5.1) mmol/L Chloride (98-107) mmol/L Carbon Dioxide (22-30) mmol/L Anion Gap (5-15) MEQ/L BUN (7-17) mg/dL Creatinine (0.52-1.04) mg/dL Estimated GFR ML/MIN Glucose (74-106) mg/dL Calcium (8.4-10.2) mg/dL Total Bilirubin (0.2-1.3) mg/dL AST (14-36) U/L ALT (0-35) U/L Alkaline Phosphatase (38-126) U/L Serum Total Protein (6.3-8.2) g/dL Albumin (3.5-5.0) g/dL Amylase (30-110) U/L Lipase (23-300) U/L Serum HCG, Qual (NEGATIVE) Urine Color (Yellow) Urine Appearance (Clear) Urine pH (4.6-8.0) Ur Specific [place] (1.005-1.030) Urine Protein (Negative) Urine Glucose (UA) (Negative) mg/dL Urine Ketones (Negative) Urine Blood (Negative) Urine Nitrite (Negative) Urine Bilirubin (Negative) Urine Urobilinogen (0.2) mg/dL Ur Leukocyte Esterase (Negative) U Hyaline Cast (Auto) (0-2) /LPF Urine Microscopic RBC (0-5) /HPF Urine Microscopic WBC (0-5) /HPF Ur Epithelial Cells (None Seen) /HPF Urine Bacteria (None Seen) /HPF Urine Culture Reflexed (NO) - Progress Progress Note: 12/22/22 05:53 Nursing note and vital signs reviewed No food or housing insecurities noted 1L NS bolus 4mg IV Zofran 40mg IV Protonix 50mcg IV Fentanyl All lab results reviewed and shared w pt CT result reviewed and shared w pt Although a lot of epithelial cells in the urine, will treat for a UTI N/V possibly due to marijuana use No evidence of surgical abdomen at this time Counseled pt/family regarding: lab results, diagnosis, need for follow-up, rad results Medical Desision Making - Diagnostic Testing Diagnostic test were ordered, analyzed, and reviewed by me: Yes Radiological Interpretation: Teleradiologist Report - Risk of complications The pt has a mod risk of morbidity or mortality based on: Need for prescription drug management - Departure Departure Disposition: Home Clinical Impression: UTI (urinary tract infection), Cannabinoid hyperemesis syndrome Condition: Stable Critical Care Time: No Referrals: ENRIKE SALAS MD [Primary Care Provider] - Follow up/PCP as directed Instructions: Urinary Tract Infection, Adult (DC), Severe Abdominal Pain, Adult (DC) Additional Instructions: Fluids Zofran for nausea/vomiting Start macrobid Quit smoking marijuana Return to ER for increasing pain or temperature greater than 100.5 Prescriptions: Ondansetron ODT 4 MG [Zofran Odt 4 mg] 4 mg PO Q6H PRN PRN #10 tablet PRN Reason: Nausea Nitrofurantoin Monohyd/M-Cryst [Macrobid 100 mg Capsule] 100 mg PO BID #10 cap
[2022-12-22 03:43] LABS: Appearance Turbid (Clear); Bacteria Many /HPF (None Seen); Bilirubin Negative (Negative); Blood Trace (Negative); Epithelial Cells Many /HPF (None Seen); Glucose, Urine Negative (Negative); Hyaline Casts NONE SEEN /LPF (0-2); Ketones 80 (Negative); Leukocyte Esterase Moderate (Negative); Nitrite Negative (Negative); Ph 5.5 (4.6-8.0); Protein,Urine Dip 30 (Negative); Specific Gravity >=1.030 (1.005-1.030)
[2022-12-22 03:44] LABS: ADD URINE CULTURE? YES (NO)
[2022-12-22] MEDS ORDERED: Sodium Chloride 0.9% 1000 ML 1,000 ML IV STA (03:51)
[2022-12-22] MEDS ORDERED: Sodium Chloride 0.9% 1000 ML 1,000 ML ONE (04:14)
[2022-12-22] MEDS ORDERED: PROTONIX 40 MG IV IV ONE ×2 (05:23→05:30)
--- NOTE | 2022-12-22 05:36 | XRAY ---
CLINICAL HISTORY:epigastric pain COMPARISON:11/18/2022 and 07/07/2021 TECHNIQUE:Axial sections of CT abdomen and pelvis were obtained without administration of intravenous contrast. Reformatted coronal and sagittal images were acquired. FINDINGS: The liver is normal in size and attenuation. No definite focal lesion on non-contrast basis. No evidence of intrahepatic biliary dilatation. The gallbladder is not visualized, likely secondary to cholecystectomy as evident by surgical clips in the gallbladder. The spleen is normal in size. Small spneunuculus is identified. Pancreas and bilateral adrenal glands appear unremarkable. Both kidneys are normal in size and shape. No renal discrete renal calculus or evidence of obstructive uropathy. Urinary bladder is partially distended. Uterus and bilateral adnexa appear unremarkable. The stomach is normally distended. Visualized large and small bowel loops appear grossly unremarkable. The appendix separately visualized. No definite evidence of acute appendicitis. Few subcentimeter mesenteric lymph nodes in the right iliac fossa. No ascites or pneumoperitoneum. Surgical staple in the right upper anterior abdominal wall. No significant abnormality in the lung bases. No acute osseous abnormality. IMPRESSION: The previously mentioned pelvic free fluid likely ovulatory in origin has been resolved. No acute pathology identified. Electronically Signed by: Mike Drake MD. (12/22/2022 04:36:22 REFRIGERATION REPAIR SUPERVISOR)
[2022-12-22] MEDS ORDERED: SUBLIMAZE 100 MCG/2 ML IV ONE (05:51)
[2022-12-22 06:02] VITALS: BP 127/76; RESP 18
[2022-12-22 06:04] VITALS: PULSE 78
[2022-12-22] MEDS ORDERED: SUBLIMAZE 100 MCG/2 ML ONE (06:06)
[2022-12-22 06:28] VITALS: O2SAT 98
== END 2022-12-22 06:29 | disposition home or self-care (01) ==
LOC: ED 01:19
DX: N39.0 Urinary tract infection, site not specified (principal); R11.2 Nausea with vomiting, unspecified; F12.90 Cannabis use, unspecified, uncomplicated; R10.13 Epigastric pain; Z28.310 Unvaccinated for COVID-19; Z72.0 Tobacco use
CPT/HCPCS: 36415; 74176; 80053; 81001; 82150; 83690; 84703; 85025; 87086; 96374; 96375; 99284; J1885; J2405; J3010

== ENCOUNTER 2023-02-27 08:53 | Emergency (ER) | payer SELFPAY ==
[2023-02-27 09:02] VITALS: TEMP 97.2
[2023-02-27] MEDS ORDERED: Sodium Chloride 0.9% 1000 ML 1,000 ML IV STA (09:05)
[2023-02-27] MEDS ORDERED: Zofran 4 MG/2 ML VIAL IV ONE (09:05)
[2023-02-27] MEDS ORDERED: TORAdol 30 mg Injection IV ONE (09:05)
--- NOTE | 2023-02-27 09:11 | ERPHSYRPT ---
- History of Present Illness Time Seen by Provider: 02/27/23 09:05 Historian: patient Exam Limitations: no limitations Patient Subjective Stated Complaint: Pt states "[facility] and I thought this problem was fixed. I do not have a gall bladder and I am having horrible smelling diarrhea, nausea, vomiting and my belly is hurting." Triage Nursing Assessment: Pt presented alert and oriented X 3, skin pwd. Pt ambulates with an upright steady gait, able to speak in clear full sentences. PT able to sit upright, will moan when laid back. Physician History: Patient is a 22-year-old female presents to our ED for evaluation of right upper quadrant and epigastric pain that started about 2 to 3 days ago. Patient had similar pain in the past and subsequently had her gallbladder excised. Pain is associated with nausea vomiting and diarrhea. No trauma no fever no rash. Symptoms are mild to moderate in intensity. Palpation to the right upper quadrant epigastric area reproduces pain. Pain improves with rest. No diaphoresis. Patient has had similar pain in the past which at the time led to her cholecystectomy. Patient says she is otherwise healthy. She voices no other complaints or concerns at this time. Portions of this note were created with voice recognition technology. There may be grammatical, spelling, punctuation or sound alike errors Timing/Duration: day(s) (3 days) Activities at Onset: none Quality: aching Abdominal Pain Onset Location: RUQ, epigastric Pain Radiation: no radiation Severity of Pain-Max: moderate Severity of Pain-Current: mild Modifying Factors: Improves With: palpation Associated Symptoms: diarrhea, nausea, vomiting Previous symptoms: same symptoms as today Allergies/Adverse Reactions: Sulfa (Sulfonamide Antibiotics) Allergy (Severe, Verified 12/22/22 03:26) Anaphylactic Reaction Hx Tetanus, Diphtheria Vaccination/Date Given: No Hx Influenza Vaccination/Date Given: No Hx Pneumococcal Vaccination/Date Given: No Immunizations Up to Date: No Travel Risk - International Travel Have you traveled outside of the country in past 3 weeks: No - Coronavirus Screening Are you exhibiting any of the following symptoms?: Yes Symptoms: Vomiting/Diarrhea - Vaccine Status Have you recieved a Covid-19 vaccination: No - Review of Systems Constitutional: No Symptoms, No Fever, No Chills Eyes: No Symptoms Ears, Nose, & Throat: No Symptoms Respiratory: No Symptoms, No Cough, No Dyspnea Cardiac: No Symptoms, No Chest Pain, No Edema, No Syncope Abdominal/Gastrointestinal: No Symptoms, No Abdominal Pain, No Nausea, No Vomiting, No Diarrhea Genitourinary Symptoms: No Symptoms, No Dysuria Musculoskeletal: No Symptoms, No Back Pain, No Neck Pain Skin: No Symptoms, No Rash Neurological: No Symptoms, No Dizziness, No Focal Weakness, No Sensory Changes Psychological: No Symptoms Endocrine: No Symptoms All Other Systems: Reviewed and Negative - Past Medical History Pertinent Past Medical History: No Neurological History: No Pertinent History ENT History: No Pertinent History Cardiac History: No Pertinent History Respiratory History: No Pertinent History Endocrine Medical History: No Pertinent History Musculoskeletal History: No Pertinent History GI Medical History: Gallbladder Disease History: No Pertinent History Psycho-Social History: No Pertinent History Female Reproductive Disorders: No Pertinent History - Past Surgical History Past Surgical History: Yes Neuro Surgical History: No Pertinent History Cardiac: No Pertinent History Respiratory: No Pertinent History Gastrointestinal: Cholecystectomy Genitourinary: No Pertinent History Musculoskeletal: No Pertinent History Female Surgical History: No Pertinent History - Social History Smoking Status: Light tobacco smoker How long have you smoked: 1 year Exposure to second hand smoke: No Drug Use: marijuana Patient Lives Alone: No - Female History Hx Last Menstrual Period: 12/02/2022 Hx Now: No - Nursing Vital Signs Nursing Vital Signs: Initial Vital Signs Temperature 97.2 F 02/27/23 08:53 Pulse Rate 66 02/27/23 08:53 Respiratory Rate 20 02/27/23 08:53 Blood Pressure 127/64 02/27/23 08:53 O2 Sat by Pulse Oximetry 96 02/27/23 08:53 Pain Scale Pain Intensity 0 - Physical Exam General Appearance: no apparent distress, alert Eye Exam: PERRL/EOMI, eyes nml inspection Ears, Nose, Throat Exam: normal ENT inspection, pharynx normal, moist mucous membranes Neck Exam: normal inspection, non-tender, supple, full range of motion Respiratory Exam: normal breath sounds, lungs clear, airway intact, No respiratory distress Cardiovascular Exam: regular rate/rhythm, normal heart sounds Gastrointestinal/Abdomen Exam: soft, tenderness (Pain reproduced with palpation to the epigastrium and right upper quadrant.), No mass Back Exam: normal inspection, normal range of motion, No CVA tenderness, No vertebral tenderness Extremity Exam: normal inspection, normal range of motion, pelvis stable Neurologic Exam: alert, oriented x 3, cooperative, normal mood/affect, nml cerebellar function, sensation nml, No motor deficits Skin Exam: normal color, warm, dry SpO2 Interpretation: normal SpO2: 96 O2 Delivery: Room Air - Course Nursing assessment & vital signs reviewed: Yes - CT Exams Abdomen/Pelvis CT Interpretation: Tele-radiologist Report (No radiologically significant abnormality noted. However there is a surgical staple in the right upper quadrant abdominal wall fat and needs clinical correlation.) Ordered Tests: Active Orders 24 hr Category Date Time Status EKG-ER Only STAT Care 02/27/23 09:05 Active IV Insertion STAT Care 02/27/23 09:05 Active ABDOMEN AND PELVIS W/0 CONTRAS [CT] Stat Exams 02/27/23 09:08 Completed CBC W DIFF Stat Lab 02/27/23 09:05 Completed CMP Stat Lab 02/27/23 09:05 Completed CULTURE,URINE Stat Lab 02/27/23 10:11 Received HCG QUALITATIVE, SERUM Stat Lab 02/27/23 09:05 Completed HCG QUALITATIVE, URINE Stat Lab 02/27/23 10:11 Completed LIPASE Stat Lab 02/27/23 09:05 Completed TROPONIN Q4H Lab 02/27/23 09:05 Completed TROPONIN Q4H Lab 02/27/23 13:15 Ordered TROPONIN Q4H Lab 02/27/23 17:15 Ordered UA W/RFX UR CULTURE Stat Lab 02/27/23 10:11 Completed Medication Summary Discontinued Medications Generic Name Dose Route Start Last Admin Trade Name Freq PRN Reason Stop Dose Admin Sodium Chloride 1,000 mls @ 999 mls/hr 02/27/23 09:05 02/27/23 10:52 Sodium Chloride 0.9% 1000 Ml IV 02/27/23 10:05 Infused .Q1H1M STA Infusion Sodium Chloride Confirm 02/27/23 09:14 Sodium Chloride 0.9% 1000 Ml Administered 02/27/23 09:15 Dose 1,000 mls @ ud .ROUTE .STK-MED ONE Ketorolac Tromethamine 30 mg 02/27/23 09:05 02/27/23 09:18 Ketorolac Tromethamine 30 Mg/Ml Inj IV 02/27/23 09:06 30 mg STAT ONE Administration Ketorolac Tromethamine Confirm 02/27/23 09:13 Ketorolac Tromethamine 30 Mg/Ml Inj Administered 02/27/23 09:14 Dose 30 mg .ROUTE .STK-MED ONE Morphine Sulfate 4 mg 02/27/23 12:17 02/27/23 12:21 Morphine Sulfate 4 Mg/Ml Injection IV 02/27/23 12:18 4 mg STAT ONE Administration Morphine Sulfate Confirm 02/27/23 12:20 Morphine Sulfate 4 Mg/Ml Injection Administered 02/27/23 12:21 Dose 4 mg .ROUTE .STK-MED ONE Nitrofurantoin Macrocrystals 100 mg 02/27/23 12:08 02/27/23 12:22 Nitrofurantoin Macro 100 Mg Capsule PO 02/27/23 12:09 100 mg STAT ONE Administration Nitrofurantoin Macrocrystals Confirm 02/27/23 12:20 Nitrofurantoin Macro 100 Mg Capsule Administered 02/27/23 12:21 Dose 100 mg .ROUTE .STK-MED ONE Ondansetron HCl 4 mg 02/27/23 09:05 02/27/23 09:17 Ondansetron Hcl 4 Mg/2 Ml Vial IV 02/27/23 09:06 4 mg STAT ONE Administration Ondansetron HCl Confirm 02/27/23 09:13 Ondansetron Hcl 4 Mg/2 Ml Vial Administered 02/27/23 09:14 Dose 4 mg .ROUTE .STK-MED ONE Lab/Rad Data: Laboratory Result Diagrams 02/27/23 09:05 02/27/23 09:05 Laboratory Results 02/27/23 02/27/23 02/27/23 Range/Units 10:11 10:11 09:05 WBC (4.0-10.5) x10^3/uL RBC (4.1-5.4) x10^6/uL Hgb (12.0-16.0) g/dL Hct (35-47) % MCV (78-100) fL MCH (26-32) pg MCHC (32-36) g/dL RDW (11.5-14.0) % Plt Count (150-450) x10^3/uL MPV (7.5-11.0) fL Gran % (36.0-66.0) % Immature Gran % (Auto) (0.00-0.4) % Nucleat RBC Rel Count (0.00-0.1) % Eos # (Auto) (0-0.5) x10^3/uL Immature Gran # (Auto) (0.00-0.03) x10^3u/L Absolute Lymphs (auto) (1.0-4.6) x10^3/uL Absolute Monos (auto) (0.0-1.3) x10^3/uL Absolute Nucleated RBC (0.00-0.01) x10^3u/L Lymphocytes % (24.0-44.0) % Monocytes % (0.0-12.0) % Eosinophils % (0.00-5.0) % Basophils % (0.0-0.4) % Absolute Granulocytes (1.4-6.9) x10^3/uL Basophils # (0-0.4) x10^3/uL Sodium (137-145) mmol/L Potassium (3.5-5.1) mmol/L Chloride (98-107) mmol/L Carbon Dioxide (22-30) mmol/L Anion Gap (5-15) MEQ/L BUN (7-17) mg/dL Creatinine (0.52-1.04) mg/dL Estimated GFR ML/MIN Glucose (74-106) mg/dL Calcium (8.4-10.2) mg/dL Total Bilirubin (0.2-1.3) mg/dL AST (14-36) U/L ALT (0-35) U/L Alkaline Phosphatase (38-126) U/L Troponin I (0.000-0.034) ng/mL Serum Total Protein (6.3-8.2) g/dL Albumin (3.5-5.0) g/dL Lipase (23-300) U/L Serum HCG, Qual NEGATIVE (NEGATIVE) Urine Color Yellow (Yellow) Urine Appearance Cloudy A (Clear) Urine pH 6.5 (4.6-8.0) Ur Specific Vernal >=1.030 A (1.005-1.030) Urine Protein Trace A (Negative) Urine Glucose (UA) Negative (Negative) mg/dL Urine Ketones 40 A (Negative) Urine Blood Negative (Negative) Urine Nitrite Negative (Negative) Urine Bilirubin Negative (Negative) Urine Urobilinogen 1.0 A (0.2) mg/dL Ur Leukocyte Esterase Moderate A (Negative) U Hyaline Cast (Auto) NONE SEEN (0-2) /LPF Urine Microscopic RBC 3-5 (0-5) /HPF Urine Microscopic WBC 21-50 A (0-5) /HPF Ur Epithelial Cells Moderate A (None Seen) /HPF Urine Bacteria Few A (None Seen) /HPF Urine Culture Reflexed YES (NO) Urine HCG, Qual NEGATIVE (NEGATIVE) 02/27/23 02/27/23 02/27/23 Range/Units 09:05 09:05 09:05 WBC 10.7 H (4.0-10.5) x10^3/uL RBC 4.89 (4.1-5.4) x10^6/uL Hgb 14.0 (12.0-16.0) g/dL Hct 42.5 (35-47) % MCV 86.9 (78-100) fL MCH 28.6 (26-32) pg MCHC 32.9 (32-36) g/dL RDW 11.9 (11.5-14.0) % Plt Count 316 (150-450) x10^3/uL MPV 10.4 (7.5-11.0) fL Gran % 88.0 H (36.0-66.0) % Immature Gran % (Auto) 0.4 (0.00-0.4) % Nucleat RBC Rel Count 0.0 (0.00-0.1) % Eos # (Auto) 0 (0-0.5) x10^3/uL Immature Gran # (Auto) 0.04 H (0.00-0.03) x10^3u/L Absolute Lymphs (auto) 1.00 (1.0-4.6) x10^3/uL Absolute Monos (auto) 0.21 (0.0-1.3) x10^3/uL Absolute Nucleated RBC 0.00 (0.00-0.01) x10^3u/L Lymphocytes % 9.4 L (24.0-44.0) % Monocytes % 2.0 (0.0-12.0) % Eosinophils % 0.0 (0.00-5.0) % Basophils % 0.2 (0.0-0.4) % Absolute Granulocytes 9.41 H (1.4-6.9) x10^3/uL Basophils # 0.02 (0-0.4) x10^3/uL Sodium 139 (137-145) mmol/L Potassium 3.8 (3.5-5.1) mmol/L Chloride 106 (98-107) mmol/L Carbon Dioxide 24 (22-30) mmol/L Anion Gap 12.7 (5-15) MEQ/L BUN 16 (7-17) mg/dL Creatinine 0.76 (0.52-1.04) mg/dL Estimated GFR 112.2 ML/MIN Glucose 127 H (74-106) mg/dL Calcium 9.4 (8.4-10.2) mg/dL Total Bilirubin 1.10 (0.2-1.3) mg/dL AST 22 (14-36) U/L ALT 20 (0-35) U/L Alkaline Phosphatase 61 (38-126) U/L Troponin I < 0.012 (0.000-0.034) ng/mL Serum Total Protein 7.8 (6.3-8.2) g/dL Albumin 4.5 (3.5-5.0) g/dL Lipase 41 (23-300) U/L Serum HCG, Qual (NEGATIVE) Urine Color (Yellow) Urine Appearance (Clear) Urine pH (4.6-8.0) Ur Specific Vernal (1.005-1.030) Urine Protein (Negative) Urine Glucose (UA) (Negative) mg/dL Urine Ketones (Negative) Urine Blood (Negative) Urine Nitrite (Negative) Urine Bilirubin (Negative) Urine Urobilinogen (0.2) mg/dL Ur Leukocyte Esterase (Negative) U Hyaline Cast (Auto) (0-2) /LPF Urine Microscopic RBC (0-5) /HPF Urine Microscopic WBC (0-5) /HPF Ur Epithelial Cells (None Seen) /HPF Urine Bacteria (None Seen) /HPF Urine Culture Reflexed (NO) Urine HCG, Qual (NEGATIVE) - Progress Progress: improved Progress Note: 22-year-old female presents to our ED for evaluation of epigastric pain/right upper quadrant pain. CT abdomen pelvis shows a surgical staple in the right anterior upper abdominal wall fat. Unclear whether or not this is contributing to patient's symptoms. Patient had history of cholecystectomy. CBC CMP nonremarkable. Troponin negative. Urinalysis significant for urinary tract infection. Patient received a dose of Macrobid in our ED. A prescription for the same was forwarded to patient's pharmacy. Patient received IV fluids Toradol and Zofran for nausea. Patient asked for a second dose of pain medication prior to discharge. Patient received a dose of morphine. Patient received a referral to general surgery to assess whether or not that staple in the adipose tissue needs to be removed. No indication for further workup at this time. Patient resting comfortably. She is requesting nausea medication other than Zofran for home. A prescription for Reglan 10 mg every 6 to 8 hours as needed for nausea forwarded to patient's pharmacy. Portions of this note were created with voice recognition technology. There may be grammatical, spelling, punctuation or sound alike errors Complexity of problems addressed is moderate acute complicated No critical care time Complex of data reviewed and analyzed is moderate. Test ordered test reviewed. Results analyzed and correlated clinically with history and physical examination. Risk of complication and or risk of morbidity/mortality of patient management is moderate. A prescription for Toradol, Macrobid and Reglan forwarded to patient's pharmacy. Time spent to discharge patient is approximately 15 minutes. Plan of care established for shared decision making. No social determinants of health present impede follow-up. Portions of this note were created with voice recognition technology. There may be grammatical, spelling, punctuation or sound alike errors 02/27/23 12:24 Counseled pt/family regarding: lab results, diagnosis, need for follow-up, rad results - Departure Departure Disposition: Home Clinical Impression: Abdominal pain, Urinary tract infection Condition: Stable Critical Care Time: No Referrals: ENRIKE SALAS MD [Primary Care Provider] - Follow up/PCP as directed MARIAMA COBOS [ACTIVE STAFF] - Follow up/PCP as directed Additional Instructions: Discharge/Care Plan BENITO VALLEJO was seen on 02/27/23 in the Emergency Room. The patient was counseled regarding Diagnosis,Lab results, Imaging studies, need for follow up and when to return to the Emergency Room. Prescriptions given: Discharge Note I have spoken with the patient and/or caregivers. I have explained the patient's condition, diagnosis and treatment plan based on the information available to me at this time. I have answered the patient's and/or caregiver's questions and addressed any concerns. The patient and/or caregivers have as good understanding of the patient's diagnosis, condition and treatment plan as can be expected at this point. The vital signs have been stable. The patient's condition is stable and appropriate for discharge from the emergency department. The patient will pursue further outpatient evaluation with the primary care physician or other designated or consulting physician as outlined in the discharge instructions. The patient and/or caregivers are agreeable to this plan of care and follow-up instructions have been explained in detail. The patient and/or caregivers have received these instruction. The patient/and or caregivers are aware that any significant change in condition or worsening of symptoms should prompt an immediate return to this or the closest emergency department or call 911. Prescriptions: Nitrofurantoin Macro 100 mg [Macrobid 100MG Capsule] 100 mg PO BID 7 Days #14 cap Metoclopramide HCl 10 mg [Reglan 10 MG] 10 mg PO Q6-8HPRN PRN 3 Days #9 tablet PRN Reason: Nausea Ketorolac Trometh 10 mg Tab [TORAdol 10 MG TABLET] 10 mg PO TID 5 Days #15 tablet
[2023-02-27] MEDS ORDERED: TORAdol 30 mg Injection ONE (09:13)
[2023-02-27] MEDS ORDERED: Zofran 4 MG/2 ML VIAL ONE (09:13)
[2023-02-27] MEDS ORDERED: Sodium Chloride 0.9% 1000 ML 1,000 ML ONE (09:14)
[2023-02-27 09:19] LABS: Absolute Neutrophil Ct (ANC) 9.41 x10^3/uL (1.4-6.9); BASOPHIL % 0.2 % (0.0-0.4); Basophil (Absolute #) 0.02 x10^3/uL (0-0.4); Eosinophil (Absolute #) 0 x10^3/uL (0-0.5); Hematocrit 42.5 % (35-47); IMMATURE GRAN % 0.4 % (0.00-0.4); Lymphocytes % 9.4 % (24.0-44.0); Mean Cell Volume 86.9 fL (78-100); Mean Corpuscular Hemoglobin 28.6 pg (26-32); Mean Corpuscular Hgb Concent. 32.9 g/dL (32-36); Mean Platelet Volume 10.4 fL (7.5-11.0); Monocyte (Absolute #) 0.21 x10^3/uL (0.0-1.3); Platelet Count 316 x10^3/uL (150-450); Red Blood Count 4.89 x10^6/uL (4.1-5.4); Red Cell Distribution Width 11.9 % (11.5-14.0); White Blood Count 10.7 x10^3/uL (4.0-10.5)
[2023-02-27 09:20] LABS: IMMATURE GRAN # 0.04 x10^3u/L (0.00-0.03)
[2023-02-27 09:36] LABS: ALBUMIN 4.5 g/dL (3.5-5.0); ANION GAP 12.7 MEQ/L (5-15); BILIRUBIN,TOTAL 1.1 mg/dL (0.2-1.3); Calcium 9.4 mg/dL (8.4-10.2); Creatinine 1 0.76 mg/dL (0.52-1.04); EST GLOMERULAR FILTRATION RATE 112.2 ML/MIN; Potassium 3.8 mmol/L (3.5-5.1); Total Protein 7.8 g/dL (6.3-8.2)
[2023-02-27 10:08] LABS: HCG SERUM TEST NEGATIVE (NEGATIVE)
[2023-02-27 10:14] LABS: HCG URINE TEST NEGATIVE (NEGATIVE)
[2023-02-27 10:22] LABS: Appearance Cloudy (Clear); Bacteria Few /HPF (None Seen); Bilirubin Negative (Negative); Blood Negative (Negative); Epithelial Cells Moderate /HPF (None Seen); Glucose, Urine Negative (Negative); Hyaline Casts NONE SEEN /LPF (0-2); Ketones 40 (Negative); Leukocyte Esterase Moderate (Negative); Nitrite Negative (Negative); Ph 6.5 (4.6-8.0); Protein,Urine Dip Trace (Negative); Specific Gravity >=1.030 (1.005-1.030); WBC 21-50 /HPF (0-5)
[2023-02-27 10:32] LABS: ADD URINE CULTURE? YES (NO)
[2023-02-27 11:51] VITALS: BP 129/75; PULSE 85; RESP 24
--- NOTE | 2023-02-27 11:58 | XRAY ---
CLINICAL HISTORY:pain COMPARISON:12/21/2022 TECHNIQUE:Axial sections of CT abdomen and pelvis were obtained without administration of intravenous contrast. Reformatted coronal and sagittal images were acquired. FINDINGS: The liver is normal in size and attenuation. No definite focal lesion on a non-contrast basis. No evidence of intrahepatic biliary dilatation. The gallbladder is not visualized, likely secondary to cholecystectomy as evidenced by surgical clips in the gallbladder. The spleen is normal in size. Small spneunuculus is identified. Pancreas and bilateral adrenal glands appear unremarkable. Both kidneys are normal in size and shape. No renal discrete renal calculus or evidence of obstructive uropathy. The urinary bladder is partially distended. Uterus and bilateral adnexa appear unremarkable. The stomach is normally distended. Visualized large and small bowel loops appear grossly unremarkable. The appendix is separately visualized. No definite evidence of acute appendicitis. Few subcentimeter mesenteric lymph nodes in the right iliac fossa. No ascites or pneumoperitoneum. A surgical staple in the right upper anterior abdominal wall fat needs clinical correlation.. No significant abnormality in the lung bases. No acute osseous abnormality. IMPRESSION: No radiologically significant abnormality noted. Electronically Signed by: Mike Drake MD. (02/27/2023 11:53:24 EST)
[2023-02-27 12:08] VITALS: O2SAT 96
[2023-02-27] MEDS ORDERED: Macrobid 100MG Capsule PO ONE (12:08)
[2023-02-27] MEDS ORDERED: MORPHINE SULFATE 4 MG INJ IV ONE (12:17)
[2023-02-27] MEDS ORDERED: MORPHINE SULFATE 4 MG INJ ONE (12:20)
[2023-02-27] MEDS ORDERED: Macrobid 100MG Capsule ONE (12:20)
== END 2023-02-27 12:40 | disposition home or self-care (01) ==
LOC: ED 08:53
DX: N39.0 Urinary tract infection, site not specified (principal); R10.11 Right upper quadrant pain; R10.13 Epigastric pain; R11.2 Nausea with vomiting, unspecified; R19.7 Diarrhea, unspecified; Z28.310 Unvaccinated for COVID-19; Z72.0 Tobacco use
CPT/HCPCS: 36000; 36415; 74176; 80053; 81001; 81025; 83690; 84484; 84703; 85025; 87086; 93005; 96360; 96374; 96375; 99284; J1885; J2270; J2405; A9270-GY